=== PATIENT | female | born 1970 | race Caucasian/White ===

== ENCOUNTER 2016-06-12 07:09 | Emergency (ER) | payer SELFPAY ==
[~2016-06-12] VITALS: Ht 160 cm; Wt 93.5 kg
[2016-06-12 07:12] VITALS: Ht 160 cm; Wt 93.5 kg
[2016-06-12] MEDS ORDERED: HYDROmorphONE 1 MG/ML SYG IV STA (07:45)
[2016-06-12] MEDS ORDERED: ONDANSETRON 4 MG INJ IV STA (07:45)
[2016-06-12 08:26] LABS: ADD SCAN DIFF NO
[2016-06-12 08:29] LABS: BASOPHILS % 0.1 % (0.0-2.0); EOSINOPHILS # 0.2 10^3/ul (0.0-0.5); EOSINOPHILS % 2.8 % (0.0-7.0); HEMATOCRIT 37.6 % (37.0-47.0); HEMOGLOBIN 12.1 g/dl (12.0-16.0); LYMPHOCYTES # 1.9 10^3/ul (0.8-2.9); LYMPHOCYTES % 25.7 % (15.0-51.0); MEAN CORPUSCULAR HEMOGLOBIN 28.9 pg (29.0-33.0); MEAN CORPUSCULAR HGB CONC 32.2 g/dl (32.0-37.0); MEAN PLATELET VOLUME 8.9 fl (7.4-10.4); MONOCYTE # 0.7 10^3/ul (0.3-0.9); NEUTROPHIL # 4.5 10^3/ul (1.6-7.5); NEUTROPHILS % 62.3 % (39.0-77.0); PLATELET COUNT 398 10^3/UL (140-415); RED BLOOD COUNT 4.18 10^6/ul (4.20-5.40); RED CELL DISTRIBUTION WIDTH 13.7 % (11.5-14.5); WHITE BLOOD COUNT 7.2 10^3/ul (4.8-10.8)
[2016-06-12 08:29] LABS: ADD UMIC YES; URINE BILIRUBIN (Dip) NEGATIVE (NEGATIVE); URINE BLOOD (Dip) 3+ (NEGATIVE); URINE COLOR LT. YELLOW (YELLOW); URINE GLUCOSE (Dip) NEGATIVE (NEGATIVE); URINE KETONES (Dip) NEGATIVE (NEGATIVE); URINE LEUKOCYTE ESTERASE (Dip) TRACE (NEGATIVE); URINE NITRITE (Dip) NEGATIVE (NEGATIVE); URINE TOTAL PROTEIN (Dip) NEGATIVE (NEGATIVE); URINE UROBILINOGEN (Dip) 0.2 E.U./dL (0.1-1.0)
[2016-06-12 08:53] LABS: URINE RBCS >50 /HPF (0)
--- NOTE | 2016-06-12 08:56 | RADRPT ---
PROCEDURE: US Abdomen (right upper quadrant). CLINICAL INDICATION: Abdominal pain. TECHNIQUE: Multiple real-time longitudinal and transverse images of the right upper quadrant of th e abdomen were acquired utilizing a curved array transducer. Images were reviewed on a high-resoluti on PACS workstation. COMPARISON: None FINDINGS: The liver is normal in size and echotexture without focal mass or intrahepatic biliary dilatation. There is normal hepatopedal flow within the main portal vein. The gallbladder is well displayed wit hout wall thickening or filling defects. The common bile duct measures 3.2 mm in maximal dimension. The visualized portions of the pancreas are unremarkable with obscuration of the tail of the pancr eas. No free fluid is identified. The right kidney measures 10.1 cm in length. There is normal echogenicity within the right kidney. There is no perinephric fluid collection. No hydronephrosis, mass, or calculus is seen. IMPRESSION: 1. Unremarkable right upper quadrant ultrasound. RPTAT: [facility] Physician Yennifer Date Time Electronically viewed and signed by Physician Yennifer on 06/12/2016 08:56 /
[2016-06-12 08:57] LABS: ALBUMIN 3.5 g/dl (3.3-4.9)
[2016-06-12 08:58] LABS: POTASSIUM 3.8 mmol/L (3.5-5.1)
[2016-06-12 09:00] LABS: BILIRUBIN,INDIRECT 0.3 mg/dl (0-1.1); BILIRUBIN,TOTAL 0.3 mg/dl (0.2-1.3); CREATININE 0.79 mg/dl (0.44-1.00)
[2016-06-12 09:01] LABS: ALBUMIN/GLOBULIN RATIO 0.94; CALCIUM 9.2 mg/dl (8.4-10.2); TOTAL PROTEIN 7.2 g/dl (6.1-8.1)
[2016-06-12 09:04] VITALS: PULSE 55; RESP 16
[2016-06-12] MEDS ORDERED: PANT40TA3 PO (09:10)
[2016-06-12] MEDS ORDERED: ONDA4TAB8 PO (09:10)
--- NOTE | 2016-06-12 09:13 | ERD ---
ER Documentation Chief Complaint Date/Time DATE: 06/12/16 TIME: 09:11 Chief Complaint mid abd pain since yesterday HPI 46-year-old female presents to the emergency department complaining of the acute onset of a severe epigastric abdominal pain that started yesterday. The pain was non-provoked. The pain does not radiate. Pain is associated with nausea, but no vomiting or diarrhea. Patient reports no fevers, chills. Patient has never had similar type pain. ROS All systems reviewed and are negative except as per history of present illness. Medications Home Meds Active Scripts Ondansetron Hcl* (Zofran*) 4 Mg Tablet, 4 MG PO Q6H for NAUSEA AND/OR VOMITING, #30 TAB Prov:RUTH ANN JIMENEZ 06/12/16 Pantoprazole* (Protonix*) 40 Mg Tablet.dr, 40 MG PO DAILY for PAIN, #20 TAB Prov:RUTH ANN JIMENEZ 06/12/16 Allergies Allergies: Coded Allergies: No Known Drug Allergy (Verified Allergy, Unknown, 10/26/09) Uncoded Allergies: NKA (Allergy, Mild, 10/26/09) PMhx/Soc Medical and Surgical Hx: pt denies Medical Hx History of Surgery: Yes () Hx Alcohol Use: Yes Hx Substance Use: No Hx Tobacco Use: No Smoking Status: Never smoker FmHx Noncontributory for chief complaint Physical Exam Vitals Vital Signs Date Time Temp Pulse Resp B/P Pulse Ox O2 Delivery O2 Flow Rate FiO2 06/12/16 09:04 55 16 90/53 96 Room Air 06/12/16 07:12 98.1 62 18 128/68 98 Physical Exam GENERAL: The patient is well developed and appropriate for usual state of health in no apparent distress HEENT: Pupils equal, round, and reactive to light. EOMI. There is no scleral icterus. NECK: C-spine is soft and supple, there is no meningismus. There is no cervical lymphadenopathy. LUNGS: Clear to auscultation bilaterally. There are no rales, wheezes or rhonchi. HEART: Regular rate and rhythm, no murmurs, clicks, rubs or gallops. ABDOMEN: Soft and nondistended. Minimal epigastric tenderness. No right upper quadrant tenderness or Wiseman sign. No rebound or guarding. EXTREMITIES: There is no peripheral cyanosis or edema. No focal swelling or erythema. NEURO: The patient moves all four extremities with 5/5 strength. Cranial nerves II - XII are intact. Normal gait. Alert and oriented SKIN: There is no apparent rash or petechiae. HEME/LYMPHATIC: There is no evidence of excessive bruising or lymphedema. PSYCHIATRIC: The patient does not appear anxious or depressed. Result Diagram: 06/12/16 0800 06/12/16 0800 Results 24 hrs Laboratory Tests Test 06/12/16 08:00 06/12/16 08:15 White Blood Count 7.210^3/ul Red Blood Count 4.1810^6/ul Hemoglobin 12.1g/dl Hematocrit 37.6% Mean Corpuscular Volume 90.0fl Mean Corpuscular Hemoglobin 28.9pg Mean Corpuscular Hemoglobin Concent 32.2g/dl Red Cell Distribution Width 13.7% Platelet Count 40227^3/UL Mean Platelet Volume 8.9fl Neutrophils % 62.3% Lymphocytes % 25.7% Monocytes % 9.0% Eosinophils % 2.8% Basophils % 0.1% Nucleated Red Blood Cells % 0.0/100WBC Neutrophils # 4.510^3/ul Lymphocytes # 1.910^3/ul Monocytes # 0.710^3/ul Eosinophils # 0.210^3/ul Basophils # 0.010^3/ul Nucleated Red Blood Cells # 0.010^3/ul Sodium Level 139mmol/L Potassium Level 3.8mmol/L Chloride Level 103mmol/L Carbon Dioxide Level 25mmol/L Anion Gap 15 Blood Urea Nitrogen 20mg/dl Creatinine 0.79mg/dl Glucose Level 101mg/dl Calcium Level 9.2mg/dl Total Bilirubin 0.3mg/dl Direct Bilirubin 0.00mg/dl Indirect Bilirubin 0.3mg/dl Aspartate Amino Transf (AST/SGOT) 22IU/L Alanine Aminotransferase (ALT/SGPT) 18IU/L Alkaline Phosphatase 88IU/L Total Protein 7.2g/dl Albumin 3.5g/dl Globulin 3.70g/dl Albumin/Globulin Ratio 0.94 Lipase 32U/L Urine Color LT. YELLOW Urine Clarity SLIGHTLY CLOUDY Urine pH 6.0 Urine Specific Buras 1.010 Urine Ketones NEGATIVE Urine Nitrite NEGATIVE Urine Bilirubin NEGATIVE Urine Urobilinogen 0.2 E.U./dL Urine Leukocyte Esterase TRACE Urine Microscopic RBC >50/HPF Urine Microscopic WBC 2-5/HPF Urine Epithelial Cells FEW Urine Hemoglobin 3+ Urine Glucose NEGATIVE% Urine Total Protein NEGATIVE Current Medications Medications (Trade) Dose Ordered Sig/Rishabh Route PRN Reason Start Time Stop Time Status Last Admin Dose Admin Hydromorphone HCl (Dilaudid) 1 mg ONCE STAT IV 06/12/16 07:45 06/12/16 07:47 DC 06/12/16 08:17 Ondansetron HCl (Zofran Inj) 4 mg ONCE STAT IV 06/12/16 07:45 06/12/16 07:47 DC 06/12/16 08:17 Procedures/MDM Patient was taken to a room, seen and evaluated. Comfort measures were initiated. Diagnostic tests were ordered and reviewed. RADIOLOGY: [reviewed with the radiologist] REEVALUATION: Serial examinations of the abdomen remained benign. Pain medicine was effective in helping her be more comfortable. MEDICAL DECISION MAKING: Patient presents with abdominal pain of uncertain etiology. Differential diagnosis considered includes appendicitis, diverticulitis, cholecystitis and other intra-abdominal medical and surgical concerns. I have reviewed the patient's lab studies and imaging as well as multiple examinations of the abdomen. At this time, patient shows no obvious evidence of cholecystitis, pancreatitis, appendicitis. Overall, patient's symptoms are well controlled, she appears to be appropriate for outpatient care. Departure Diagnosis: Primary Impression: Abdominal pain Patient Instructions: Abdominal Pain Additional Instructions: See your doctor for follow-up as discussed. Take a copy of your test results, if appropriate, to this follow-up visit. See your doctor or return here if your symptoms do not improve as expected. At any time, please return to the emergency department for any change or worsening in her symptoms. RUTH ANN JIMENEZ Jun 12, 2016 09:13
[2016-06-12 09:26] VITALS: BP 100/52
== END 2016-06-12 09:36 | disposition home or self-care (01) ==
LOC: FTE 07:09
DX: R10.13 Epigastric pain (principal)
CPT/HCPCS: 36415; 76705; 80053; 81001; 81003; 83690; 85025; 96374; 96375; 99285; J1170; J2405